=== PATIENT | male | born 1980 | race African-American/Black ===

== ENCOUNTER 2019-12-14 00:53 | Emergency (ER) | payer MEDICAID, SELFPAY ==
[~2019-12-14] VITALS: Ht 175.3 cm; Wt 102.2 kg
[2019-12-14 00:53] VITALS: BP 132/85
[2019-12-14] MEDS ORDERED: MOBI4TAB PO (01:57)
--- NOTE | 2019-12-14 08:00 | REP ---
Clinical: Trauma. Technique: AP, lateral, bilateral oblique and sunrise views right knee . Findings: The osseous structures and joint spaces are intact and normal. There is no evidence for acute fracture or dislocation. No joint effusion is appreciated. Surrounding soft tissues are unremarkable. No subcutaneous emphysema or radiodense foreign body. Impression: Normal examination. No acute fracture or dislocation. Electronically Signed by Ronny Guido MD 12/14/2019 07:51 A
== END 2019-12-14 02:19 | disposition home or self-care (01) ==
LOC: M ED 00:53
DX: S89.91XA Unspecified injury of right lower leg, initial encounter (principal); W00.1XXA Fall from stairs and steps due to ice and snow, initial encounter; Y92.098 Other place in other non-institutional residence as the place of occurrence of the external cause; F17.210 Nicotine dependence, cigarettes, uncomplicated

== ENCOUNTER 2021-06-26 12:40 | Emergency (ER) | payer MEDICAID, OTHER, SELFPAY ==
[~2021-06-26] VITALS: Ht 177.8 cm; Wt 93.3 kg
[~2021-06-26 12:40] MED LIST: MOBI4TAB PO
[2021-06-26 18:46] LABS: HEPATITIS B SURFACE ANTIBODY POSITIVE (POSITIVE); HEPATITIS B SURFACE ANTIGEN NEGATIVE (NEGATIVE); HIV 1&2 SCREEN CENTAUR NEGATIVE (NEGATIVE)
[2021-06-26 18:50] VITALS: BP 128/71
[2021-06-26 19:45] LABS: GC DNA AMPLIFICATION NEGATIVE (NEGATIVE)
== END 2021-06-26 18:50 | disposition home or self-care (01) ==
LOC: M ED 12:40
DX: Z20.822 Contact with and (suspected) exposure to COVID-19 (principal); Z20.2 Contact with and (suspected) exposure to infections with a predominantly sexual mode of transmission; F17.200 Nicotine dependence, unspecified, uncomplicated; F12.10 Cannabis abuse, uncomplicated
CPT/HCPCS: 86706; 86780; 86803; 87340; 87389; 87529; 87661; 99283; U0003

== ENCOUNTER 2023-09-30 23:01 | Emergency (ER) | payer OTHER ==
[~2023-09-30] VITALS: Ht 182.9 cm; Wt 90.3 kg
[2023-09-30 23:15] VITALS: TEMP 96.9
[2023-09-30] MEDS ORDERED: NS 1,000 ML IV ONE (23:15)
[2023-09-30 23:30] LABS: VENOUS BASE EXCESS -5.7 (-2.0-2.0); VENOUS HCO3 21.5 MMOL/L (23.0-27.0); VENOUS O2 SATURATION 69.3 % (60.0-80.0); VENOUS PARTIAL PRESSURE CO2 48.3 mmHg (38.0-50.0); VENOUS PARTIAL PRESSURE O2 38.3 mmHg (30.0-50.0); VENOUS PH 7.266 UNITS (7.330-7.430); VENOUS STANDARD HCO3 19.2 MMOL/L
[2023-09-30 23:40] LABS: BASO % 0.6 % (0.0-1.0); EOS # 0.5 10^3/uL (0.0-0.5); EOS % 9.7 % (0.0-3.0); HEMATOCRIT 44.5 % (42.0-52.0); HEMOGLOBIN 14.1 g/dl (13.5-17.5); LYMPH # 1.7 10^3/uL (1.5-5.0); LYMPH % 34.2 % (24.0-44.0); MEAN CORPUSCULAR HEMOGLOBIN 27.6 pg (27.0-33.0); MEAN CORPUSCULAR HGB CONC 31.7 g/dl (32.0-36.5); MEAN CORPUSCULAR VOLUME 87.1 fl (80.0-96.0); MONO # 0.4 10^3/uL (0.0-0.8); NEUTROPHILS # 2.3 10^3/uL (1.5-8.5); NEUTROPHILS % 47.3 % (36.0-66.0); PLATELET COUNT, AUTOMATED 366 10^3/uL (150-450); RED BLOOD COUNT 5.11 10^6/uL (4.30-6.10); WHITE BLOOD COUNT 4.9 10^3/uL (4.0-10.0)
[2023-09-30 23:56] LABS: ETHYL ALCOHOL (ETHANOL) < 0.003 % (0.000-0.010)
[2023-09-30 23:57] LABS: SALICYLATE LEVEL < 3.0 MG/DL (<30)
[2023-09-30 23:58] LABS: ALBUMIN 3.3 G/DL (3.2-5.2); ALKALINE PHOSPHATASE 86 U/L (46-116); ALT/SGPT 45 U/L (7.0-40); AST/SGOT 57 U/L (<34); BILIRUBIN,DIRECT 0.2 MG/DL (<0.4); BILIRUBIN,TOTAL 0.4 MG/DL (0.3-1.2); BLOOD UREA NITROGEN 19 MG/DL (9-23); CALCIUM LEVEL 8.8 MG/DL (8.5-10.1); CARBON DIOXIDE LEVEL 24 MMOL/L (20-31); CHLORIDE LEVEL 105 MMOL/L (98-107); CPK CREATINE PHOSPHOKINASE 118 U/L (46-171); CREATININE FOR GFR 1.15 MG/DL (0.70-1.30); GLOMERULAR FILTRATION RATE > 60.0 (>60); GLUCOSE, FASTING 206 MG/DL (60-100); POTASSIUM SERUM 4.1 MMOL/L (3.5-5.1); SODIUM LEVEL 138 MMOL/L (136-145); TOTAL PROTEIN 6.6 G/DL (5.7-8.2)
[2023-10-01 00:02] LABS: THYROID STIMULATING HORMONE 2.232 uIU/ML (0.55-4.78)
[2023-10-01 00:04] LABS: RSV AMPLIFICATION NEGATIVE (NEGATIVE)
[2023-10-01 01:31] LABS: BARBITURATES URINE NEGATIVE (NEGATIVE); BENZODIAZEPINES URINE NEGATIVE (NEGATIVE); COCAINE METABOLITE URINE NEGATIVE (NEGATIVE); METHADONE URINE NEGATIVE (NEGATIVE); PHENCYCLIDINE URINE NEGATIVE (NEGATIVE)
[2023-10-01 01:32] LABS: CANNABINOIDS URINE NEGATIVE (NEGATIVE)
[2023-10-01 01:34] LABS: AMPHETAMINES LEVEL URINE POSITIVE (NEGATIVE); OPIATES URINE POSITIVE (NEGATIVE)
[2023-10-01 02:45] VITALS: BP 158/85; O2SAT 97
== END 2023-10-01 03:31 | disposition home or self-care (01) ==
LOC: EDBD 23:01 → M ED 23:01
DX: F19.10 Other psychoactive substance abuse, uncomplicated (principal)

== ENCOUNTER → 2023-11-11 | Outpatient (CLI) | payer OTHER | LOC: M RAD 09:41 | PROVIDERS: ATTEND Physician Assistant Medical | DX: N50.811 Right testicular pain (principal); N43.2 Other hydrocele ==